=== PATIENT | female | born 1945 | race American Indian/Alaskan Native ===

== ENCOUNTER 2020-01-29 09:44 | Emergency (ER) | payer OTHER, MEDICARE ==
[2020-01-29 10:06] VITALS: BP 116/71
[2020-01-29] MEDS ORDERED: ACETAMINOPHEN 325 MG TAB PO ONE (11:00)
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
== END 2020-01-29 13:14 | disposition home or self-care (01) ==
LOC: ED 09:44
DX: S62.201A Unspecified fracture of first metacarpal bone, right hand, initial encounter for closed fracture (principal); I10 Essential (primary) hypertension; Z98.890 Other specified postprocedural states; V49.49XA Driver injured in collision with other motor vehicles in traffic accident, initial encounter; Y93.89 Activity, other specified; Y92.410 Unspecified street and highway as the place of occurrence of the external cause; Y99.8 Other external cause status
CPT/HCPCS: 71046